=== PATIENT | female | born 1975 | race Caucasian/White ===

== ENCOUNTER 2017-10-20 17:38 | Emergency (ER) | payer SELFPAY ==
[2017-10-20 17:46] VITALS: BP 130/73; BMI 19.2
[2017-10-20] MEDS ORDERED: XYLOCAINE 1 % (PLAIN) ONE (17:50)
--- NOTE | 2017-10-20 18:05 | DR.GENAD ---
HPI - PCP Primary Care Physician: JONES - HPI Comment HPI Comment: Thinks he may have been bitten by a spider - Complaint/Symptoms Chief Complaint:: ONE WEEK AND PT C/O HAVING AN ABCESS TO HIS RIGHT UPPER ARM.. PT HAS A LARGE AMOUNT OF REDNESS TO HIS RIGHT UPPER ARM AN A LARGE ABCESS NOTED... - Source History Provided: Patient - Mode of Arrival Mode of Arrival: Ambulatory - Timing Onset of Chief Complaint: 10/15/17 PMH - PMH Past Medical History: No Past Medical History Comment: no sig or contributory PMH Past Surgical History: Yes - Family History History of Family Medical Conditions: No - Social History Does patient currently use any type of tobacco product: Yes Have you used tobacco products in the last 12 months: Yes Type of Tobacco Use: Cigarettes How many years tobacco product used: 20 Does any household member use tobacco: No Alcohol Use: None Do you use any recreational Drugs:: No Lives With: Family Lives Where: Home - infectious screening In the last 2 months have you had wt loss of >10#?: NO Have you had fever, night sweats or hemotysis?: No Have you traveled outside the country in the last 6 months?: No Isolation: Standard ROS - Review of Systems Constitutional: See HPI. negative: Chills, Fever Eyes: No Symptoms Reported ENTM: No Symptoms Reported Respiratoy: No Symptoms Reported Cardiovascular: No Symptoms Reported Gastrointestinal/Abdominal: No Symptoms Reported Genitourinary: No Symptoms Reported Neurological: No Symptoms Reported Musculoskeletal: Other (5x5cm cutaneous abscess rt ant arm. Fluctulant.) PE - Vital Signs Vitals: Temperature 97.8 F Pulse Rate 97 Respiratory Rate 20 Blood Pressure 130/73 O2 Sat by Pulse Oximetry 100 - General Limitations: No Limitations General Appearance: Alert, In No Apparent Distress - Head Head Exam: Normal Inspection - Eyes Eye exam: Normal Appearance - ENT ENT Exam: Normal Exam - Neck Neck Exam: Normal Inspection, Full ROM - Chest Chest Inspection: Normal Inspection - Respiratory Respiratory Exam: Normal Lung Sounds Bilat Respiratory Exam: Bilateral Clear to Auscultation - Cardiovascular Cardiovascular Exam: Regular Rate, Normal Rhythm - Abdominal Exam Abdominal Exam: Normal Inspection, Normal Bowel Sounds, Soft - Extremities Extremities Exam: Other (5x5cm cutaneous abscess rt upper arm..Red and tender, no spon drainage.) - Neurologic Neurological Exam: Alert, Oriented X3 - Psychiatric Psychiatric Exam: Normal Affect, Normal Mood - Skin Skin Exam: Warm, Dry, Other (abscess, see above) ROR - Labs Reviewed Laboratory Results Reviewed?: Yes (culture pending) Procedures - Incision and Drainage Site: rt arm Blade Size: 11 I & D Procedure: betadine prep (pt felix well, no complications. Will start doxy x 10 days), sterile drapes applied, sterile dressing applied, gauze wick placed - Diagnosis Discharge Problem: Abscess - Discharge Plan Disposition: HOME, SELF-CARE Condition: Stable Prescriptions: Doxycycline Hyclate 100 mg PO BID 10 Days #20 tablet. Oxycodone HCl/Acetaminophen [Percocet 5-325 mg Tablet] 1 each PO TID PRN #12 tablet PRN Reason: Pain - Follow ups/Referrals Follow ups/Referrals: [facility],None [Primary Care Provider] - 3 days - Instructions
[2017-10-20] MEDS ORDERED: PERCOCET TAB 5/325 MG PO ONE (18:12)
== END 2017-10-20 18:39 | disposition home or self-care (01) ==
LOC: ER 18:03
PROC: 0X983ZZ Drainage of Right Upper Arm, Percutaneous Approach (ICD-10-PCS; principal; 2017-10-20)
DX: L02.413 Cutaneous abscess of right upper limb (principal)
CPT/HCPCS: 10060; 87070; 87075; 87077; 87186; 87205; 99282; J2001